=== PATIENT | male | born 1925 | race Caucasian/White ===

== ENCOUNTER 2016-05-03 07:54 | Observation (INO) | payer MEDICARE, MEDICAID ==
[~2016-05-03] VITALS: Ht 188 cm; Wt 81.6 kg
[~2016-05-03 07:54] MED LIST: ACHYD1T PO; AMLO5TAB2 PO; ASP81CT PO; CARV3.122; CARV6.25; CEFD300C3 PO; CIPR-226 PO; CIPR500T78 PO; CTLP20T; DOCU-143 PO; DOXA1TAB; DOXA1TAB PO; ENLP5T; EZET10TA5; EZET10TA5 PO; FA/M1TAB29 PO; HCT25T; HCT25T PO; HYDR-1231 PO; HYDR-3812 PO; NITR-65 PO; OLAN1CAP; OMEG1CAP51 PO; PHEN200T27 PO; QTP25T PO; SIMV40TA2; SMV20T; TELM80TA3 PO
--- OUTSIDE RECORDS SUMMARY | 2016-05-03 08:00 | XMS REPORT | Continuity of Care Document ---
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 If you do not see the information that you expected, contact Release of Information in the Health Information Management department at [phone] for further assistance in locating additional records.[facility] Active Allergies and Adverse Reactions Not on File Current Medications Not on file Active Problems Not on file Social History Tobacco Use Types Packs/Day Years Used Date Never Assessed Plan of Care Health Maintenance Due Date Last Done Comments Physical (Comprehensive) 1933 Exam Pertussis Vaccine 1937 Tetanus Vaccine 07/14/1943 Shingles Vaccine 1986 Prevnar/Pneumovax (#1) 07/14/1991 Influenza Vaccine 11/17/2015 Results from Last 3 Months Not on file
[2016-05-03 08:13] LABS: BASOPHILS % (AUTO) 0 % (0-10); EOSINOPHILS # (AUTO) 0.3 10^3/uL (0.0-0.3); EOSINOPHILS % (AUTO) 5 % (0-10); LYMPHOCYTES # (AUTO) 1.7 X 10^3 (1.0-4.0); LYMPHOCYTES % (AUTO) 29 % (12-44); MEAN CORPUSCULAR HEMOGLOBIN 33 PG (25-34); MEAN CORPUSCULAR HGB CONC 35 G/DL (32-36); MEAN CORPUSCULAR VOLUME 94 FL (80-99); MEAN PLATELET VOLUME 8.7 FL (7.4-10.4); MONOCYTES # (AUTO) 0.5 X 10^3 (0.0-1.0); MONOCYTES % (AUTO) 9 % (0-12); NEUTROPHILS # (AUTO) 3.3 X 10^3 (1.8-7.8); NEUTROPHILS % (AUTO) 57 % (42-75); PLATELET COUNT 115 10^3/uL (130-400); RED BLOOD COUNT 4.27 10^6/uL (4.35-5.85); RED CELL DISTRIBUTION WIDTH 12.9 % (10.0-14.5); WHITE BLOOD COUNT 5.8 10^3/uL (4.3-11.0)
[2016-05-03 08:16] LABS: BILIRUBIN,URINE NEGATIVE (NEGATIVE); KETONES,URINE NEGATIVE (NEGATIVE); LEUKOCYTE ESTERASE ,URINE NEGATIVE (NEGATIVE); NITRITE,URINE NEGATIVE (NEGATIVE); PH,URINE 6 (5-9); PROTEIN,URINE NEGATIVE (NEGATIVE); UROBILINOGEN,URINE NORMAL (NORMAL)
[2016-05-03 08:26] LABS: WBC,URINE RARE /HPF
[2016-05-03 08:29] LABS: ALANINE AMINOTRANSFERASE 14 U/L (0-55); ALBUMIN 3.9 G/DL (3.2-4.5); ALCOHOL < 10 MG/DL (<10); ANION GAP 10 MMOL/L (5-14); ASPARTATE AMINO TRANSFERASE 21 U/L (5-34); BILIRUBIN,TOTAL 0.6 MG/DL (0.1-1.0); BLOOD UREA NITROGEN 34 MG/DL (7-18); BUN/CREATININE RATIO 27; CALCIUM 9.7 MG/DL (8.5-10.1); CARBON DIOXIDE 26 MMOL/L (21-32); CHLORIDE 103 MMOL/L (98-107); CREATINE KINASE 135 U/L (30-200); CREATININE SERUM 1.24 MG/DL (0.60-1.30); GFR ESTIMATED 55; GLUCOSE 109 MG/DL (70-105); MAGNESIUM 2.1 MG/DL (1.8-2.4); POTASSIUM 4.3 MMOL/L (3.6-5.0); SODIUM 139 MMOL/L (135-145); TOTAL PROTEIN 6.9 G/DL (6.4-8.2)
[2016-05-03 08:48] LABS: TROPONIN I < 0.30 NG/ML (<0.30)
--- NOTE | 2016-05-03 08:52 | Diagnostic Imaging Report ---
Clinical indication: Weak all over and dizzy. Exam: Axial CT scan of brain performed without IV contrast. Comparison: CT scan of the brain and sinuses dated 05/09/2015. Findings: There is no CT evidence of acute cerebral infarct, intracranial hemorrhage, or gross mass effect. There are focal and patchy areas of low-attenuation white matter changes seen throughout both cerebral hemispheres. The brain parenchymal volume appears appropriate for patient's age. There is no significant midline shift or herniation. There is no evidence of hydrocephalus. The basal cisterns are unremarkable. The skull, extracranial soft tissue, and orbits are unremarkable. There is fluid and secretion seen in the right maxillary sinus with small to moderate amount of mucosal thickening. There is mild mucosal thickening involving left maxillary sinus, ethmoid sinus, sphenoid sinus, and frontal sinus. Impression: 1.: There is no gross CT evidence of intracranial hemorrhage, large vascular territorial cerebral infarct, hydrocephalus, or brain herniation. 2: There is focal and patchy areas of low-attenuation white matter changes within both cerebral hemispheres, likely representing chronic small vessel ischemic disease. 3: Mild to moderate paranasal sinus disease. Dictated by: Dictated on workstation # [id number]
--- NOTE | 2016-05-03 09:02 | Diagnostic Imaging Report ---
EXAMINATION: Portable upright radiograph of the chest. INDICATION: Possible stroke. Weakness and lightheadedness. FINDINGS: The lungs are hyperinflated. There is mild prominence of interstitial markings appears to be chronic with no significant congestion or edema. No significant consolidation. The heart size is borderline in size. No effusion or pneumothorax. Mediastinum and mariela appear unremarkable. The sternotomy wires and post CABG changes seen. IMPRESSION: COPD. Borderline cardiac size. Dictated by: Dictated on workstation # [id number]
--- NOTE | 2016-05-03 09:48 | ED General ---
General Chief Complaint: General Problems/Pain Stated Complaint: WEAKNESS/AMS Source of Information: Patient, EMS, Old Records Exam Limitations: No Limitations History of Present Illness Time Seen by Provider: 08:00 Initial Comments This 89-year-old gentleman presents to the emergency room with generalized weakness and moderate disorientation. He activated EMS this morning because he was unable to get up off the air mattress he was sleeping on. He sleeps on an air mattress on the floor so he will fall out of bed. He lives alone in an apartment. He reports not feeling well for at least several days. Exact time of onset is uncertain. He has mild shortness of air but no chest pain, cough, or fever. Patient denies any fall or trauma. Allergies and Home Medications Allergies Coded Allergies: No Known Drug Allergies (Verified , 02/26/07) Home Medications Aspirin 325 Mg Tablet 325 MG PO DAILY (Reported) Citalopram Hydrobromide 20 Mg Tablet 20 MG PO DAILY (Reported) LAST FILLED 03/02/16 #30 Fa/Multivits-Min/Lycopene/Lut 1 Each Tablet 1 TAB PO DAILY (Reported) Hydrochlorothiazide 50 Mg Tablet 50 MG PO DAILY (Reported) LAST FILLED 03/02/16 #30 [place]-3 Fatty Acids/Fish Oil 1 Each Capsule 1,000 MG PO DAILY (Reported) Simvastatin 40 Mg Tablet 40 MG PO HS (Reported) LAST FILLED 03/02/16 #30 Constitutional: see HPI weakness EENTM: no symptoms reported Respiratory: no symptoms reported Cardiovascular: no symptoms reported Gastrointestinal: no symptoms reported Genitourinary: no symptoms reported Musculoskeletal: no symptoms reported Skin: no symptoms reported Psychiatric/Neurological: See HPI Hematologic/Lymphatic: No Symptoms Reported Past [id number]-[id number]-Pqqvsu Hx Patient Social History Former Smoker/When Quit: Feb 25, 1964 Recent Hopitalizations: Yes Immunizations Up To Date Date of Pneumonia Vaccine: Dec 17, 2011 Date of Influenza Vaccine: Dec 16, 2013 Surgeries HX Surgeries: Yes (PARTIAL COLECTOMY, X5 BYPASSES) Surgeries: Abdominal, Cardiac, CABG Respiratory Hx Respiratory Disorders: No Cardiovascular Hx Cardiac Disorders: Yes Cardiac Disorders: Chronic Edema/Swelling, Coronary Artery Disease, High Cholesterol, Hypertension Neurological Hx Neurological Disorders: Yes (HEADACHES) Neurological Disorders: Headaches /Migraines Reproductive System Hx Reproductive Disorders: No Genitourinary Hx Genitourinary Disorders: Yes (GROWTH ON RIGHT URETER) Gastrointestinal Hx Gastrointestinal Disorders: Yes (HX PARTIAL COLECTOMY) Musculoskeletal Hx Musculoskeletal Disorders: No Endocrine Hx Endocrine Disorders: No HEENT HX ENT Disorders: No Cancer Hx Cancer: No Psychosocial Hx Psychiatric Problems: Yes Behavioral Health Disorders: Depression Blood Transfusions Hx Blood Disorders: No Family Medical History Significant Family History: No Pertinent Family Hx Physical Exam Vital Signs Vital Sign - Last 12Hours 05/03/16 07:55 Temp 97.1 Pulse 49 Resp 20 B/P 180/86 Pulse Ox 97 O2 Delivery Room Air Capillary Refill : General Appearance: No Apparent Distress WD/WN HEENT: PERRL/EOMI Normal ENT Inspection Pharynx Normal Neck: Normal Inspection Respiratory: Lungs Clear Normal Breath Sounds No Accessory Muscle Use No Respiratory Distress Cardiovascular: Regular Rate, Rhythm No Edema No Murmur Gastrointestinal: Normal Bowel Sounds Non Tender Soft Extremity: Normal Inspection No Pedal Edema Neurologic/Psychiatric: Alert No Motor/Sensory Deficits Normal 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 Norm as Tested Other (disoriented to age and month) Skin: Normal Color Warm/Dry Progress/Results/Core Measures Results/Orders Lab Results Laboratory Tests Test 05/03/16 07:55 05/03/16 08:10 Range/Units Alanine Aminotransferase (ALT/SGPT) 14 0-55 U/L Albumin 3.9 3.2-4.5 G/DL Alkaline Phosphatase 70 40-136 U/L Anion Gap 10 5-14 MMOL/L Aspartate Amino Transf (AST/SGOT) 21 5-34 U/L BUN/Creatinine Ratio 27 Basophils # (Auto) 0.0 0.0-0.1 10^3/uL Basophils (%) (Auto) 0 0-10 % Blood Urea Nitrogen 34 H 7-18 MG/DL Calcium Level 9.7 8.5-10.1 MG/DL Carbon Dioxide Level 26 21-32 MMOL/L Chloride Level 103 98-107 MMOL/L Creatinine 1.24 0.60-1.30 MG/DL Eosinophils # (Auto) 0.3 0.0-0.3 10^3/uL Eosinophils (%) (Auto) 5 0-10 % Estimat Glomerular Filtration Rate 55 Glucose Level 109 H 70-105 MG/DL Hematocrit 40 40-54 % Hemoglobin 14.0 13.3-17.7 G/DL Lymphocytes # (Auto) 1.7 1.0-4.0 X 10^3 Lymphocytes (%) (Auto) 29 12-44 % Magnesium Level 2.1 1.8-2.4 MG/DL Mean Corpuscular Hemoglobin 33 25-34 PG Mean Corpuscular Hemoglobin Concent 35 32-36 G/DL Mean Corpuscular Volume 94 80-99 FL Mean Platelet Volume 8.7 7.4-10.4 FL Monocytes # (Auto) 0.5 0.0-1.0 X 10^3 Monocytes (%) (Auto) 9 0-12 % Neutrophils # (Auto) 3.3 1.8-7.8 X 10^3 Neutrophils (%) (Auto) 57 42-75 % Platelet Count 115 L 130-400 10^3/uL Potassium Level 4.3 3.6-5.0 MMOL/L Red Blood Count 4.27 L 4.35-5.85 10^6/uL Red Cell Distribution Width 12.9 10.0-14.5 % Serum Alcohol < 10 <10 MG/DL Sodium Level 139 135-145 MMOL/L TSH Horace Testing 2.59 0.35-4.94 UIU/ML Total Bilirubin 0.6 0.1-1.0 MG/DL Total Creatine Kinase 135 30-200 U/L Total Protein 6.9 6.4-8.2 G/DL Troponin I < 0.30 <0.30 NG/ML White Blood Count 5.8 4.3-11.0 10^3/uL Urine Bacteria NEGATIVE /HPF Urine Bilirubin NEGATIVE NEGATIVE Urine Casts NONE /LPF Urine Clarity CLEAR Urine Color YELLOW Urine Crystals NONE /LPF Urine Culture Indicated NO Urine Glucose (UA) NEGATIVE NEGATIVE Urine Ketones NEGATIVE NEGATIVE Urine Leukocyte Esterase NEGATIVE NEGATIVE Urine Mucus NEGATIVE /LPF Urine Nitrite NEGATIVE NEGATIVE Urine Protein NEGATIVE NEGATIVE Urine RBC NONE /HPF Urine RBC (Auto) NEGATIVE NEGATIVE Urine Specific [place] 1.015 L 1.016-1.022 Urine Urobilinogen NORMAL NORMAL MG/DL Urine WBC RARE /HPF Urine pH 6 5-9 My Orders Orders-STEVE HOOD MD Alcohol (05/03/16 08:07) Cbc With Automated Diff (05/03/16 08:07) Comprehensive Metabolic Panel (05/03/16 08:07) Creatine Kinase (05/03/16 08:07) Magnesium (05/03/16 08:07) Thyroid Analyzer (05/03/16 08:07) Troponin I (05/03/16 08:07) Ua Culture If Indicated (05/03/16 08:07) Chest 1 View, Ap/Pa Only (05/03/16 08:07) Saline Lock/Iv-Start (05/03/16 08:07) Ekg Tracing (05/03/16 08:07) Monitor-Rhythm Ecg Trace Only (05/03/16 08:07) Ct Head Wo-R/O Stroke (05/03/16 08:07) Vital Signs/I&O Vital Sign - Last 12Hours 05/03/16 05/03/16 05/03/16 07:55 10:55 13:00 Temp 97.1 97.6 Pulse 49 49 46 Resp 20 20 B/P 180/86 Pulse Ox 97 98 O2 Delivery Room Air ECG Initial ECG Impression Date: May 03, 2016 Initial ECG Impression Time: 09:06 Initial ECG Rate: 50 Initial ECG Rhythm: Normal Sinus Comment Borderline sinus bradycardia with first-degree AV block. Borderline left axis deviation. No ST elevation or depression. Diagnostic Imaging Diagonstic Imaging: CT Plain Films/CT/US/NM/MRI: head Comments CT head viewed by me and report reviewed. See report below: NAME: SUSAN ARMAS [facility] REC#: [id number] PT STATUS: REG ER : 1925 PHYSICIAN: STEVE HOOD MD ADMIT DATE: 05/03/16/ER Draft Date of Exam:05/03/16 CT HEAD WO-R/O STROKE Clinical indication: Weak all over and dizzy. Exam: Axial CT scan of brain performed without IV contrast. Comparison: CT scan of the brain and sinuses dated 05/09/2015. Findings: There is no CT evidence of acute cerebral infarct, intracranial hemorrhage, or gross mass effect. There are focal and patchy areas of low-attenuation white matter changes seen throughout both cerebral hemispheres. The brain parenchymal volume appears appropriate for patient's age. There is no significant midline shift or herniation. There is no evidence of hydrocephalus. The basal cisterns are unremarkable. The skull, extracranial soft tissue, and orbits are unremarkable. There is fluid and secretion seen in the right maxillary sinus with small to moderate amount of mucosal thickening. There is mild mucosal thickening involving left maxillary sinus, ethmoid sinus, sphenoid sinus, and frontal sinus. Impression: 1.: There is no gross CT evidence of intracranial hemorrhage, large vascular territorial cerebral infarct, hydrocephalus, or brain herniation. 2: There is focal and patchy areas of low-attenuation white matter changes within both cerebral hemispheres, likely representing chronic small vessel ischemic disease. 3: Mild to moderate paranasal sinus disease. Dictated on workstation # [id number] Dict: 05/03/16 0843 Trans: 05/03/16 0852 DAVID [id number] Interpreted by: JACOBO SOLOMON MD Diagonstic Imaging: Xray Plain Films/CT/US/NM/MRI: chest Comments Chest x-ray report reviewed. See report below: NAME: SUSAN ARMAS [facility] REC#: [id number] PT STATUS: REG ER : 1925 PHYSICIAN: STEVE HOOD MD ADMIT DATE: 05/03/16/ER Draft Date of Exam:05/03/16 CHEST 1 VIEW, AP/PA ONLY EXAMINATION: Portable upright radiograph of the chest. INDICATION: Possible stroke. Weakness and lightheadedness. FINDINGS: The lungs are hyperinflated. There is mild prominence of interstitial markings appears to be chronic with no significant congestion or edema. No significant consolidation. The heart size is borderline in size. No effusion or pneumothorax. Mediastinum and mariela appear unremarkable. The sternotomy wires and post CABG changes seen. IMPRESSION: COPD. Borderline cardiac size. Dictated on workstation # [id number] Dict: 05/03/16 0853 Trans: 05/03/16 0902 [facility] [id number] Interpreted by: FRANK ESPAÑA MD Departure Communication Time/Spoke to Admitting Phy: 09:15 Communication Case was reviewed with Dr. Gaffney. Patient is generally weak and requires assistance for standing per EMS. He was generally weak on exam as well. He has some disorientation with age and month. He has difficulty providing history. He has good insight to his confusion. He does not appear safe to return home to care for self. Dr. Gaffney is agreeable to admission for observation and social work consultation. Impression Impression: Primary Impression: Generalized weakness Additional Impression: Disoriented Disposition: 09 ADMITTED INPATIENT Condition: Improved Decision to Admit Reason: Admit from ER (General) Decision to Admit/Date: May 03, 2016 Time/Decision to Admit Time: 09:15 Departure-Patient Inst. Referrals: SUE TAN MD (PCP/Family) Primary Care Physician STEVE HOOD MD May 03, 2016 09:48 history. He has good insight to his confusion. He does not appear safe to return home to care for self. Dr. Gaffney is agreeable to admission for observation and social work consultation. Impression Impression: Primary Impression: Generalized weakness Additional Impression: Disoriented Disposition: 09 ADMITTED INPATIENT Condition: Improved Decision to Admit Reason: Admit from ER (General) Decision to Admit/Date: May 03, 2016 Time/Decision to Admit Time: 09:15 Departure-Patient Inst. Referrals: SUE TAN MD (PCP/Family) Primary Care Physician STEVE HOOD MD May 03, 2016 09:48
[2016-05-03 11:05] VITALS: BP 155/72
[2016-05-03] MEDS ORDERED: NS IV 1000 ML 1,000 ML ONE (11:34)
--- NOTE | 2016-05-03 12:29 | History & Physicial ([facility]) ---
HPI History of Present Illness: Patient called the ambulance after he fell when he got out of bed to use the bathroom. He felt dizzy and fell to the ground. He lives alone and so this was unwitnessed, but he does not think he lost consciousness and he doesn't have any pain anywhere to suggest injury related to the fall. He states he overall doesn't feel right and feels he is having a hard time thinking clearly but is unable to delineate any specific problem. He is unable to relate his past medical history or medications. He denies chest pain or palpitations before his fall. He denies fever or cough but does admit some intermittent shortness of breath. Attending Physician Sarah Gaffney MD PCP Salazar Tan MD Consult Date of Admission May 03, 2016 at 10:16 am Home Medications Home Medications Reviewed patient Home Medication Reconciliation Form Allergies Coded Allergies: No Known Drug Allergies (Verified , 02/26/07) DME-[id number]-Qhyhbe Hx Patient Social History Alcohol Use: Rarely Uses Recreational Drug Use: No Smoking Status: Former Smoker Former smoker/When Quit: Feb 25, 1964 Type Used: Cigarettes, Smokeless Tobacco Recent Foreign Travel: No Contact w/other who traveled: No Recent Hopitalizations: No Recent Infectious Disease Expo: No Immunizations Up To Date Date of Pneumonia Vaccine: Dec 17, 2011 Date of Influenza Vaccine: Dec 21, 2015 Past Medical History PMHx: HTN CAD with history of CABG Right ureteral mass with right hydronephrosis- washings without neoplastic cells, but not entirely ruled out (2013) Volvulus SBO PSurgHx: CABG Sigmoidectomy for volvulus Ureteroscopy Family Medical History Significant Family History: No Pertinent Family Hx Review of Systems ([facility]) Constitutional: No fever EENTM: No nose congestion, No throat pain Respiratory: No cough, short of breath Cardiovascular: No chest pain, No palpitations Gastrointestinal: No abdominal pain, No constipation, No diarrhea, No nausea, No vomiting Genitourinary: No dysuria Musculoskeletal: No joint pain, No muscle pain Skin: rash (on back and arms states is resolved now) Psychiatric/Neurological: See HPI Reviewed Test Results Reviewed Test Results Lab Laboratory Tests Test 05/03/16 07:55 05/03/16 08:10 Range/Units Alanine Aminotransferase (ALT/SGPT) 14 0-55 U/L Albumin 3.9 3.2-4.5 G/DL Alkaline Phosphatase 70 40-136 U/L Anion Gap 10 5-14 MMOL/L Aspartate Amino Transf (AST/SGOT) 21 5-34 U/L BUN/Creatinine Ratio 27 Basophils # (Auto) 0.0 0.0-0.1 10^3/uL Basophils (%) (Auto) 0 0-10 % Blood Urea Nitrogen 34 H 7-18 MG/DL Calcium Level 9.7 8.5-10.1 MG/DL Carbon Dioxide Level 26 21-32 MMOL/L Chloride Level 103 98-107 MMOL/L Creatinine 1.24 0.60-1.30 MG/DL Eosinophils # (Auto) 0.3 0.0-0.3 10^3/uL Eosinophils (%) (Auto) 5 0-10 % Estimat Glomerular Filtration Rate 55 Glucose Level 109 H 70-105 MG/DL Hematocrit 40 40-54 % Hemoglobin 14.0 13.3-17.7 G/DL Lymphocytes # (Auto) 1.7 1.0-4.0 X 10^3 Lymphocytes (%) (Auto) 29 12-44 % Magnesium Level 2.1 1.8-2.4 MG/DL Mean Corpuscular Hemoglobin 33 25-34 PG Mean Corpuscular Hemoglobin Concent 35 32-36 G/DL Mean Corpuscular Volume 94 80-99 FL Mean Platelet Volume 8.7 7.4-10.4 FL Monocytes # (Auto) 0.5 0.0-1.0 X 10^3 Monocytes (%) (Auto) 9 0-12 % Neutrophils # (Auto) 3.3 1.8-7.8 X 10^3 Neutrophils (%) (Auto) 57 42-75 % Platelet Count 115 L 130-400 10^3/uL Potassium Level 4.3 3.6-5.0 MMOL/L Red Blood Count 4.27 L 4.35-5.85 10^6/uL Red Cell Distribution Width 12.9 10.0-14.5 % Serum Alcohol < 10 <10 MG/DL Sodium Level 139 135-145 MMOL/L TSH [place] Testing 2.59 0.35-4.94 UIU/ML Total Bilirubin 0.6 0.1-1.0 MG/DL Total Creatine Kinase 135 30-200 U/L Total Protein 6.9 6.4-8.2 G/DL Troponin I < 0.30 <0.30 NG/ML White Blood Count 5.8 4.3-11.0 10^3/uL Urine Bacteria NEGATIVE /HPF Urine Bilirubin NEGATIVE NEGATIVE Urine Casts NONE /LPF Urine Clarity CLEAR Urine Color YELLOW Urine Crystals NONE /LPF Urine Culture Indicated NO Urine Glucose (UA) NEGATIVE NEGATIVE Urine Ketones NEGATIVE NEGATIVE Urine Leukocyte Esterase NEGATIVE NEGATIVE Urine Mucus NEGATIVE /LPF Urine Nitrite NEGATIVE NEGATIVE Urine Protein NEGATIVE NEGATIVE Urine RBC NONE /HPF Urine RBC (Auto) NEGATIVE NEGATIVE Urine Specific [place] 1.015 L 1.016-1.022 Urine Urobilinogen NORMAL NORMAL MG/DL Urine WBC RARE /HPF Urine pH 6 5-9 Radiology CXR 05/03/16: "COPD, borderline cardiac size" CT head 05/03/16: DRAFT: Impression: 1.There is no gross CT evidence of intracranial hemorrhage, large vascular territorial cerebral infarct, hydrocephalus, or brain herniation. 2: There is focal and patchy areas of low-attenuation white matter changes within both cerebral hemispheres, likely representing chronic small vessel ischemic disease. 3: Mild to moderate paranasal sinus disease." Physical Exam-([facility]) Physical Exam Vital Signs VS - Last 72 Hours, by Label 05/03/16 05/03/16 05/03/16 05/03/16 07:55 10:55 11:05 11:05 Temp 97.1 97.6 97.1 Pulse 49 49 68 Resp 20 20 20 B/P 180/86 155/72 Pulse Ox 97 98 97 O2 Delivery Room Air Room Air Room Air 05/03/16 05/03/16 13:00 15:25 Pulse 46 B/P Capillary Refill : Less Than 3 Seconds General Appearance: no apparent distress other (unkempt, poor dentition) HEENT: No scleral icterus (R), No scleral icterus (L) Respiratory: lungs clear normal breath sounds no respiratory distress Cardiovascular: no edema no murmur bradycardia Gastrointestinal: normal bowel sounds non tender soft Extremities: no pedal edema 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 Confusion 2. Fall 3. Bradycardia 4. CAD 5. HTN 6. Right ureteral mass Plan 1. Confusion- CT head unremarkable, labs unremarkable and no evidence of infection (normal UA, CXR unremarkable, no leukocytosis), no clear neurologic deficit -Unclear etiology, consider medication related (on hydrocodone at home) -Will hold any medications that can cause confusion and monitor 2. Fall- sounds like possible orthostatic hypotension, given his bradycardia and CAD, will consult Cardiology 3. Bradycardia- chronic but now with fall concerning for developing symptoms, consult Cardiology 4. CAD- h/o CABG -Will resume home medications once they can be clarified- pt unable to state his home medications 5. HTN- currently markedly hypertensive -Resume home medications when clarified 6. Right ureteral mass- has been present for quite some time and cytology done from [facility] in 2013 did not have neoplastic cells but also stated low grade neoplasm not entirely ruled out and CT in 12/2015 showed significant increase in size and marked hydronephrosis -Will check clinic records to see what work-up has been done and if more evaluation is needed DVT ppx- SCDs, enoxaparin Diagnosis/Problems: Copy Copies To 1: SALAZAR TAN MD,SARAH Cárdenas MD May 03, 2016 12:28 pm
[2016-05-03] MEDS ORDERED: HYDR50TA3 PO (13:20)
[2016-05-03] MEDS ORDERED: CITA20TA7 PO (13:20)
[2016-05-03] MEDS ORDERED: SIMV40TA4 PO (13:20)
[2016-05-03] MEDS ORDERED: ASPI-808 PO (13:22)
--- NOTE | 2016-05-04 16:21 | Discharge Summary ---
Diagnosis/Chief Complaint Date of Admission May 03, 2016 at 11:05 am Date of Discharge May 03, 2016 at 3:25 pm Admission Diagnosis Admission Diagnosis 1. Confusion 2. Fall 3. Bradycardia 4. CAD 5. HTN 6. Right ureteral mass Discharge Diagnosis PATIENT LEFT AMA, no further work-up able to be done. 1. Confusion- CT head unremarkable, labs unremarkable and no evidence of infection (normal UA, CXR unremarkable, no leukocytosis), no clear neurologic deficit and oriented to self and location, reports he is not usually oriented to date -Unclear etiology, consider medication related (on hydrocodone at home) -Will hold any medications that can cause confusion and monitor 2. Fall- sounds like possible orthostatic hypotension, given his bradycardia and CAD, will consult Cardiology 3. Bradycardia- chronic but now with fall concerning for developing symptoms, consult Cardiology 4. CAD- h/o CABG -Will resume home medications once they can be clarified- pt unable to state his home medications 5. HTN- currently markedly hypertensive -Resume home medications when clarified 6. 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 He felt dizzy and fell to the ground. He lives alone and so this was unwitnessed, but he does not think he lost consciousness and he doesn't have any pain anywhere to suggest injury related to the fall. He states he overall doesn't feel right and feels he is having a hard time thinking clearly but is unable to delineate any specific problem. He is unable to relate his past medical history or medications. He denies chest pain or palpitations before his fall. He denies fever or cough but does admit some intermittent shortness of breath. Discharge Summary-Simple/Stand Consultations Discharge Physical Examination Allergies: Coded Allergies: No Known Drug Allergies (Verified , 02/26/07) Vitals & I&Os Vital Sign - Last 12Hours Date Time Temp Pulse Resp B/P Pulse Ox O2 Delivery O2 Flow Rate FiO2 2/16/17 15:25 05/03/16 13:00 46 05/03/16 11:05 97.1 20 97 Room Air Intake and Output 05/04/16 00:00 Intake Total 350 ml Balance 350 ml Hospital Course See final discharge diagnosis. Radiology Reviewed CXR 05/03/16: "COPD, borderline cardiac size" CT head 05/03/16: DRAFT: Impression: 1.There is no gross CT evidence of intracranial hemorrhage, large vascular territorial cerebral infarct, hydrocephalus, or brain herniation. 2: There is focal and patchy areas of low-attenuation white matter changes within both cerebral hemispheres, likely representing chronic small vessel ischemic disease. 3: Mild to moderate paranasal sinus disease." Discharge Instructions to patient/family Please see electonic discharge instructions given to patient. Discharge Medications Reviewed and agree with Discharge Medication list on patient's Discharge Instruction sheet Clinical Quality Measures DVT/VTE Risk/Contraindication: Risk Factor Score Per Nursin RFS Level Per Nursing on Admit: 2=Moderate Copy Copies To 1: SUE TAN MD, BETHANY N MD May 04, 2016 4:21 pm
== END 2016-05-03 15:25 | disposition left against medical advice (07) ==
LOC: EDUNIT# 07:54 → ER 07:56 → ICU 10:16 → UNDOADMOB 10:16 → ICU 11:05 → UNDODISOB 15:25
PROVIDERS: ADMIT Family Medicine; ATTEND Family Medicine
DX: R41.0 Disorientation, unspecified (principal); R00.1 Bradycardia, unspecified; R53.1 Weakness; R42 Dizziness and giddiness; R29.6 Repeated falls; I25.10 Atherosclerotic heart disease of native coronary artery without angina pectoris; I10 Essential (primary) hypertension; N28.9 Disorder of kidney and ureter, unspecified; Z95.1 Presence of aortocoronary bypass graft; Z87.891 Personal history of nicotine dependence
CPT/HCPCS: 36415; 70450; 71010; 80053; 80320; 81000; 82550; 83735; 84443; 84484; 85025; 93005; 93041; G0378